=== PATIENT | male | born 1985 | race Caucasian/White ===

== ENCOUNTER → 2018-04-10 | Outpatient (CLI) | payer BC ==
[2018-04-10 11:17] LABS: Alanine Aminotransferase 64 U/L (16-61); Aspartate Aminotransferase 29 U/L (15-37)
== END | disposition home or self-care (01) ==
LOC: LAB 10:44
DX: R74.8 Abnormal levels of other serum enzymes (principal)
CPT/HCPCS: 36415; 84450; 84460